=== PATIENT | male | born 1960 | race Caucasian/White ===

== ENCOUNTER 2021-04-27 18:20 | Inpatient (IN) | payer BC ==
[~2021-04-27] VITALS: Ht 182.9 cm; Wt 85.5 kg
--- NOTE | 2021-04-27 19:02 | NUR ---
PT DROVE HIMSELF TO ED TODAY FOR RECURRING DIZZINESS. DIZZINESS INTERMITTENT STARTING 12/2020, ALWAYS WHEN PT STANDS FROM SITTING POSITION, SOMETIMES PT WILL FALL DUE TO DIZZINESS. NAD NOTED AT THIS TIME. PT REPORTS SLIGHT CP X2 WEEKS DESCRIBES "PRESSURE" PT REPORTS "50% BLOCKAGE THAT WAS MONITORED FOR A LONG TIME" DENIES ANY INTERVENTIONS DUE TO THIS "BLOCKAGE."
--- NOTE | 2021-04-27 19:52 | NUR ---
DR STOVER AT BEDSIDE FOR ASSESSMENT. SHORTLY BEFORE ASSESSMENT, PT TAKES OFF ALL MONITORING AND GETS FULLY DRESSED, TELLING RN HE WISHES TO LEAVE BECAUSE "IT'S PROBABLY GOING TO BE HOURS BEFORE A DOCTOR SEES ME." PT HAD PREVIOUSLY TOLD RN THAT LAST NIGHT HE WENT TO A DIFFERENT HOSPITAL AND ELOPED FROM THERE WELL. PT ENCOURAGED BY RN TO STAY AND BE ASSESSED. PT BACK IN BED AND REPLACED ON MONITORING DEVICES. REPORT TO CAMRYN CHRISTINA.
[2021-04-27] MEDS ORDERED: SODIUM CHLORIDE FLUSH 10ML SYR IVF ONE (20:00)
[2021-04-27] MEDS ORDERED: SODIUM CHLORIDE 0.9% 1,000ML IVBOLUS ONE (20:00)
--- NOTE | 2021-04-27 20:16 | NUR ---
ASSUMED CARE FROM CAMRYN GARCIA. PT RESTING IN [facility], MONITORING IN PLACE, NADN AT THIS TIME, PIV INSERTED AND PT MEDICATED PER EMAR. PT STATES NO NEEDS AT THIS TIME, WCTM.
[2021-04-27 20:49] LABS: BASOPHILS % (AUTO) 1 % (0-1); EOSINOPHILS % (AUTO) 3 % (1-7); LYMPHOCYTES % (AUTO) 44 % (22-44); MEAN CORPUSCULAR HEMOGLOBIN 29.8 pg (27.5-34.5); MEAN CORPUSCULAR HGB CONC 33.7 g/dL (33.2-36.2); MEAN PLATELET VOLUME 6.7 fL (7.4-10.4); MONOCYTES % (AUTO) 8 % (2-9); NEUTROPHILS % (AUTO) 45 % (42-75); PLATELET COUNT 323 x10^3/uL (130-400); RED BLOOD COUNT 4.55 x10^6/uL (4.38-5.82); RED CELL DISTRIBUTION WIDTH 14.2 % (9.4-14.8)
[2021-04-27 21:00] LABS: ALANINE AMINOTRANSFERASE 24 U/L (12-78); ALBUMIN 3.9 g/dL (3.4-5.0); ANION GAP 6 mmol/L (5-15); CALCIUM 8.5 mg/dL (8.5-10.1); CHLORIDE 107 mmol/L (98-107); CREATININE 1.37 mg/dL (0.7-1.3)
[2021-04-27 21:11] LABS: ALKALINE PHOSPHATASE 74 U/L (45-117); BILIRUBIN,TOTAL 0.3 mg/dL (0.2-1.0); TOTAL PROTEIN 7.5 g/dL (6.4-8.2); TROPONIN I < 0.015 ng/mL (0.000-0.045)
--- NOTE | 2021-04-27 21:16 | NUR ---
PT RESTING IN [facility] AT THIS TIME, PER PT NO NEEDS AT THIS TIME, WCTM.
[2021-04-27] MEDS ORDERED: LORazepam 1MG TABLET ONE (22:07)
--- NOTE | 2021-04-27 22:11 | NUR ---
PT STATING HE IS HAVING A LOT OF ANXIETY, PT REFUSING TO STAY IN ROOM AT THIS TIME, EDMD AWARE, NEW ORDER FOR ATIV[facility]. PT MEDICATED PER EMAR. WCTM.
[2021-04-27] MEDS ORDERED: LORazepam 1MG TABLET PO ONE (22:30)
[2021-04-27] MEDS ORDERED: NICOTINE 21 MG/24 HR PATCH.TD24 TD ONE (23:00)
[2021-04-27] MEDS ORDERED: ACETAMINOPHEN 325 MG TABLET PO PRN (23:00)
[2021-04-27] MEDS ORDERED: ONDANSETRON 2MG/ML, 2ML IVPush PRN (23:00)
[2021-04-27] MEDS ORDERED: LABETALOL 5MG/ML, 20ML IVPush PRN (23:00)
[2021-04-27] MEDS ORDERED: TRAZODONE 50MG TABLET PO PRN (23:00)
[2021-04-27] MEDS ORDERED: ENAL1TAB5 PO (23:32)
[2021-04-27 23:37] VITALS: BP 155/89
[2021-04-27] MEDS ORDERED: METO50TA6 PO (23:37)
[2021-04-27] MEDS ORDERED: GEMF-31 PO (23:37)
[2021-04-27 23:43] LABS: TROPONIN I < 0.015 ng/mL (0.000-0.045)
[2021-04-28 01:28] LABS: MICROSCOPIC NOT IND
[2021-04-28 01:34] VITALS: BP 120/81
[2021-04-28 01:41] LABS: AMPHETAMINE SCREEN, URINE Negative (Negative); BARBITURATE SCREEN, URINE Negative (Negative); BENZODIAZEPINE SCREEN, URINE Negative (Negative); CANNABINOID SCREEN, URINE Negative (Negative); COCAINE SCREEN, URINE Negative (Negative); METHADONE SCREEN, URINE Negative (Negative); OPIATE SCREEN, URINE Negative (Negative)
[2021-04-28] MEDS: LORazepam 1MG TABLET PO PRN ×2 (02:15→06:14)
[2021-04-28] MEDS: ASPIRIN 325 MG TABLET EC PO SCH (05:05)
[2021-04-28 07:05] VITALS: BP 126/77
[2021-04-28] MEDS ORDERED: ACETAMINOPHEN 325 MG TABLET PO PRN (09:00)
[2021-04-28] MEDS ORDERED: REGADENOSON 0.4 MG/5 ML SYRINGE ONE (09:07)
[2021-04-28] MEDS: HEPARIN 5,000 UNITS/ML, 1ML SQ SCH ×2 (09:23→16:49)
[2021-04-28 10:31] LABS: ANION GAP 4 mmol/L (5-15); CALCIUM 8.8 mg/dL (8.5-10.1); CHLORIDE 105 mmol/L (98-107)
[2021-04-28 10:36] LABS: CHOL/HDL RATIO 6.8; CHOLESTEROL, TOTAL 189 mg/dL (140-239); CREATININE 1.23 mg/dL (0.7-1.3); HDL CHOL % 15 % (26-37); HDL CHOLESTEROL (DIRECT) 28 mg/dL (40-60); LDL CHOLESTEROL,CALCULATED 117 mg/dL (54-169); LDL/HDL RATIO 4.2 (0.5-3.0); TRIGLYCERIDES 221 mg/dL (50-200); TROPONIN I < 0.015 ng/mL (0.000-0.045); VLDL CHOLESTEROL 44 mg/dL (0-25)
[2021-04-28] MEDS: LORazepam 0.5MG TABLET PO PRN (11:04)
[2021-04-28 12:45] VITALS: BP 117/79
[2021-04-28] MEDS: SODIUM CHLORIDE 0.9% 1,000 ML IV SCH (13:39)
[2021-04-28 17:29] VITALS: BP 149/79
[2021-04-28 17:30] VITALS: BP_SYST 142; BP_SYST 165; BP_DIAS 82; BP_DIAS 86
[2021-04-28 20:31] VITALS: BP_SYST 137; BP_SYST 146; BP_SYST 155; BP_DIAS 83; BP_DIAS 92; BP_DIAS 95
[2021-04-29] MEDS: SODIUM CHLORIDE 0.9% 1,000 ML IV SCH (00:40)
[2021-04-29] MEDS: HEPARIN 5,000 UNITS/ML, 1ML SQ SCH ×2 (00:40→09:31)
[2021-04-29] MEDS: LORazepam 0.5MG TABLET PO PRN ×2 (00:45→09:33)
[2021-04-29 00:50] VITALS: BP_SYST 131; BP_SYST 132; BP_SYST 154; BP_DIAS 102; BP_DIAS 84; BP_DIAS 89
[2021-04-29] MEDS: ASPIRIN 325 MG TABLET EC PO SCH (05:47)
[2021-04-29 07:02] VITALS: BP 150/87
[2021-04-29] MEDS ORDERED: NICOTINE 21 MG/24 HR PATCH.TD24 TD ONE (08:00)
[2021-04-29] MEDS ORDERED: GEMFIBROZIL 600 MG TABLET PO SCH (09:00)
[2021-04-29] MEDS ORDERED: GEMF-31 PO (10:55)
[2021-04-29] MEDS ORDERED: ASPI81TA45 PO (10:55)
[2021-04-29] MEDS ORDERED: TAMS-11 PO (10:55)
== END 2021-04-29 14:00 | disposition home or self-care (01) | DRG 312 ==
LOC: ED 22:14 → EDIP 22:43 → 4EST 23:05
PROVIDERS: ADMIT Family Medicine; ATTEND Internal Medicine
DX: I95.2 Hypotension due to drugs (principal); N17.9 Acute kidney failure, unspecified; I25.10 Atherosclerotic heart disease of native coronary artery without angina pectoris; E78.1 Pure hyperglyceridemia; F17.210 Nicotine dependence, cigarettes, uncomplicated; F41.1 Generalized anxiety disorder; I12.9 Hypertensive chronic kidney disease with stage 1 through stage 4 chronic kidney disease, or unspecified chronic kidney disease; N18.9 Chronic kidney disease, unspecified; G47.00 Insomnia, unspecified; N40.0 Benign prostatic hyperplasia without lower urinary tract symptoms; T50.995A Adverse effect of other drugs, medicaments and biological substances, initial encounter; S01.01XA Laceration without foreign body of scalp, initial encounter; X58.XXXA Exposure to other specified factors, initial encounter; Z79.899 Other long term (current) drug therapy; Z82.49 Family history of ischemic heart disease and other diseases of the circulatory system; Y92.89 Other specified places as the place of occurrence of the external cause; Y93.89 Activity, other specified; Y99.8 Other external cause status
CPT/HCPCS: 36415; 70450; 71045; 78452; 80048; 80053; 80061; 80307; 81003; 83690; 83735; 84443; 84484; 85025; 93005; 93017; 93306; 93356; 93880; G0378; J1644; J2785; A9502; J7030